=== PATIENT | male | born 1955 | race Caucasian/White ===

== ENCOUNTER 2017-07-30 12:44 | Emergency (ER) | payer MEDICARE ==
[~2017-07-30] VITALS: Ht 172.7 cm; Wt 100.0 kg
[~2017-07-30 12:44] MED LIST: ASPI-1265 PO; HYDR1TAB PO; MYL80T PO; NOR5T PO; OMEP-84 PO; PAM25C PO; PROM25TA14 PO; ZOLP5TAB8 PO
[2017-07-30] MEDS ORDERED: ondansetron/PF 4mg/2ml inj IV ONE (13:20)
[2017-07-30] MEDS ORDERED: morphine 4 MG/ML inj SYRINge IV ONE ×2 (13:20→14:50)
[2017-07-30] MEDS ORDERED: normal saline 1000ML IV soln IVB ONE (13:20)
[2017-07-30] MEDS ORDERED: iohexol 300mg/ml 100ml inj. ONE (13:46)
[2017-07-30 14:13] LABS: BASOPHILS % (AUTO) 0.1 % (0-1); EOSINOPHILS # (AUTO) 0.2 X10'3 (0-0.9); EOSINOPHILS % (AUTO) 1.4 % (0-6); HEMATOCRIT 40.8 % (42.0-52.0); HEMOGLOBIN 14.3 g/dl (14.0-17.9); LYMPHOCYTES # (AUTO) 1.1 X10'3 (1.1-4.8); LYMPHOCYTES % (AUTO) 10.4 % (21-51); MEAN CORPUSCULAR HEMOGLOBIN 33.1 PG (27.0-31.0); MEAN CORPUSCULAR VOLUME 94.6 FL (78-98); MEAN PLATELET VOLUME 8.2 FL (7.4-10.4); MONOCYTES # (AUTO) 0.6 X10'3 (0-0.9); MONOCYTES % (AUTO) 5.4 % (2-12); NEUTROPHILS % (AUTO) 82.7 % (42-75); PLATELET COUNT 183 X10'3 (140-440); RED BLOOD COUNT 4.31 X10'6 (4.70-6.10); RED CELL DISTRIBUTION WIDTH 13.7 % (11.5-14.5); WHITE BLOOD COUNT 10.8 X10'3 (4.5-11.0)
[2017-07-30 14:30] LABS: ALANINE AMINOTRANSFERASE 48 U/L (12-78); ALBUMIN 4.2 G/DL (3.4-5.0); ALBUMIN/GLOBULIN RATIO 1.2 (1.1-1.5); ALKALINE PHOSPHATASE 101 IU/L (46-116); ANION GAP 12 (8-16); ASPARTATE AMINO TRANSFERASE 35 U/L (10-37); BILIRUBIN,TOTAL 0.4 MG/DL (0.1-1.0); BLOOD UREA NITROGEN 12 MG/DL (7-18); BUN/CREATININE RATIO 11.8 (5.4-32.0); CHLORIDE 102 MMOL/L (99-107); CREATININE 1.02 MG/DL (0.60-1.10); GLUCOSE 113 MG/DL (70-104); LIPASE 104 U/L (73-393); SODIUM 138 MMOL/L (135-145); TOTAL PROTEIN 7.7 G/DL (6.4-8.2); eGFR 74 ML/MIN
[2017-07-30 14:49] LABS: TOTAL CELLS COUNTED 100
[2017-07-30 14:50] LABS: PLATELET ESTIMATE NORMAL
[2017-07-30 16:01] LABS: CLARITY,URINE CLEAR (Clear); COLOR,URINE YELLOW (Yellow); GLUCOSE, URINE NEGATIVE (Neg); KETONES,URINE NEGATIVE (Neg); LEUKOCYTE ESTERASE ,URINE NEGATIVE (Neg); NITRITES, URINE NEGATIVE (Neg); OCCULT BLOOD,URINE LARGE (Neg); PH,URINE 5.5 (4.8-8.0); PROTEIN,URINE NEGATIVE (Neg); UA COLLECTION TYPE CLN CATCH MIDSTREAM; UROBILINOGEN,URINE 0.2 E.U/dL (0.2-1.0)
[2017-07-30 16:07] LABS: BACTERIA,URINE NONE SEEN /HPF (Neg); RBC,URINE TNTC /HPF (0-2); WBC,URINE 0-4 /HPF (0-4)
[2017-07-30 16:08] LABS: COARSE GRANULAR CAST 0-3 /LPF (NEGATIVE); HYALINE CASTS 0-3 /LPF (NEGATIVE); MUCUS STRANDS FEW /LPF (Neg); SQUAMOUS EPITHELIAL CELL,UR NONE SEEN /LPF (FEW)
[2017-07-30] MEDS ORDERED: OXYC-145 PO (16:44)
[2017-07-30] MEDS ORDERED: PER10325T PO (16:47)
[2017-07-30 17:17] VITALS: BP 126/105
== END 2017-07-30 17:20 | disposition home or self-care (01) ==
LOC: ER 12:45
DX: S32.048A Other fracture of fourth lumbar vertebra, initial encounter for closed fracture (principal); S52.502A Unspecified fracture of the lower end of left radius, initial encounter for closed fracture; I10 Essential (primary) hypertension; G89.29 Other chronic pain; Z98.890 Other specified postprocedural states; Z79.82 Long term (current) use of aspirin; Z79.899 Other long term (current) drug therapy; W01.0XXA Fall on same level from slipping, tripping and stumbling without subsequent striking against object, initial encounter; Y93.89 Activity, other specified; Y92.89 Other specified places as the place of occurrence of the external cause; Y99.8 Other external cause status
CPT/HCPCS: 36415; 71260; 72148; 73090; 74177; 80053; 81001; 83605; 83690; 85025; 86885; 86900; 86901; 93005; 96361; 96374; 96375; 96376; 99285; J2270; J2405; J7030; Q9967

== ENCOUNTER 2017-08-05 10:20 | Outpatient (CLI) | payer MEDICARE ==
[2017-08-05 10:19] VITALS: BP 134/94
[~2017-08-05 10:20] MED LIST changes: +PER10325T PO
== END 2017-08-05 11:45 | disposition home or self-care (01) ==
LOC: ORTHO 10:20
PROVIDERS: ATTEND Nurse Practitioner Family
DX: S52.502A Unspecified fracture of the lower end of left radius, initial encounter for closed fracture (principal); S52.612A Displaced fracture of left ulna styloid process, initial encounter for closed fracture; Z79.899 Other long term (current) drug therapy; W11.XXXA Fall on and from ladder, initial encounter; Y93.89 Activity, other specified; Y92.89 Other specified places as the place of occurrence of the external cause; Y99.8 Other external cause status
CPT/HCPCS: 29075; 73110; 99213; A4590

== ENCOUNTER 2017-08-24 08:30 | Day surgery (SDC) | payer MEDICARE ==
[2017-08-22 12:14] LABS: BASOPHILS % (AUTO) 0.2 % (0-1); EOSINOPHILS # (AUTO) 0.1 X10'3 (0-0.9); EOSINOPHILS % (AUTO) 1.2 % (0-6); LYMPHOCYTES # (AUTO) 2.1 X10'3 (1.1-4.8); LYMPHOCYTES % (AUTO) 42.7 % (21-51); MEAN CORPUSCULAR HEMOGLOBIN 32.7 PG (27.0-31.0); MEAN CORPUSCULAR VOLUME 93.6 FL (78-98); MEAN PLATELET VOLUME 8.4 FL (7.4-10.4); MONOCYTES # (AUTO) 0.4 X10'3 (0-0.9); MONOCYTES % (AUTO) 8.2 % (2-12); NEUTROPHILS # (AUTO) 2.3 X10'3 (1.8-7.7); NEUTROPHILS % (AUTO) 47.7 % (42-75); PRE OP HEMATOCRIT 39.9 % (42.0-52.0); PRE OP HEMOGLOBIN 13.9 g/dL (14.0-17.9); PRE OP PLATELET COUNT 202 X10'3 (140-440); RED BLOOD COUNT 4.26 X10'6 (4.70-6.10); RED CELL DISTRIBUTION WIDTH 13.8 % (11.5-14.5)
[2017-08-22 12:35] LABS: ALBUMIN/GLOBULIN RATIO 1.1 (1.1-1.5); ALKALINE PHOSPHATASE 183 IU/L (46-116); BLOOD UREA NITROGEN 14 MG/DL (7-18); BUN/CREATININE RATIO 15.6 (5.4-32.0); CHLORIDE 104 MMOL/L (99-107); PRE OP ALT 31 U/L (30-65); PRE OP ANION GAP 10 (8-16); PRE OP AST 19 U/L (10-37); PRE OP BILIRUB, TOTAL 0.3 MG/DL (0.0-1.0); PRE OP GLUCOSE 102 MG/DL (70-104); PRE OP POTASSIUM 4.3 MMOL/L (3.4-5.1); PRE OP SODIUM 142 MMOL/L (135-145); TOTAL PROTEIN 7.5 G/DL (6.4-8.2); eGFR 85 ML/MIN
[~2017-08-24] VITALS: Ht 175.3 cm; Wt 102.1 kg
[2017-08-24] VITALS (8 sets, daily range): BP systolic 133–143; BP diastolic 77–92
[~2017-08-24 08:30] MED LIST changes: -PAM25C PO; -PER10325T PO; +ceFAZolin 2gm in dextrose, iso 100 ML IV ONE; +famotidine 20mg tablet PO ONE; +ringers solution, lacted 1,000 ML IV SCH; +vancomycin inj 1,500 MG in normal saline 300ml IV soln IV ONE
[2017-08-24] MEDS ORDERED: ceFAZolin 1000mg inj ONE (09:49)
[2017-08-24] MEDS ORDERED: BUPIVAcaine/PF 2.5 mg/ml (0.25%) 30ml vial ONE ×2 (09:49→10:50)
[2017-08-24] MEDS ORDERED: desflurane 240ml liquid inh. IH ONE (10:16)
[2017-08-24] MEDS ORDERED: fentaNYL/PF 50MCG/1 ML 2ML syringe ONE (10:20)
[2017-08-24] MEDS ORDERED: midazolam 2 mg/2 ml injection ONE (10:21)
[2017-08-24] MEDS ORDERED: dexamethasone sod phosphate 4mg/ml inj. ONE (10:50)
[2017-08-24] MEDS ORDERED: ePHEDrine 50MG/ML INJ. ONE (10:51)
[2017-08-24] MEDS ORDERED: LIDOcaine 2% (20mg/ml) 5ml vial ONE (10:51)
[2017-08-24] MEDS ORDERED: ondansetron/PF 4mg/2ml inj ONE (11:39)
[2017-08-24] MEDS ORDERED: ketorolac trometh. 30mg/ml inj. ONE (11:39)
[2017-08-24] MEDS ORDERED: morphine 10mg/ml inj. ONE (11:40)
[2017-08-24] MEDS ORDERED: ringers solution, lacted 1,000 ML IV SCH (12:46)
[2017-08-24] MEDS ORDERED: acetaminophen 1,000mg/100ml IV 100 ML IV PRN (12:50)
[2017-08-24] MEDS ORDERED: ondansetron/PF 4mg/2ml inj IV PRN (12:50)
[2017-08-24] MEDS ORDERED: proCHLORperazine 10 MG/2 ml inj IV PRN (12:50)
[2017-08-24] MEDS ORDERED: morphine 4 MG/ML inj SYRINge IV PRN ×2 (12:50)
[2017-08-24] MEDS ORDERED: meperidine/PF 50mg/ml syringe IV PRN ×3 (12:50)
== END 2017-08-24 13:45 | disposition home or self-care (01) ==
LOC: PAS 08:30
PROVIDERS: ATTEND Orthopaedic Surgery
DX: S52.572A Other intraarticular fracture of lower end of left radius, initial encounter for closed fracture (principal); I10 Essential (primary) hypertension; F32.9 Major depressive disorder, single episode, unspecified; Z79.82 Long term (current) use of aspirin; Z98.890 Other specified postprocedural states; Z87.891 Personal history of nicotine dependence; Z98.52 Vasectomy status; Z79.899 Other long term (current) drug therapy; W11.XXXA Fall on and from ladder, initial encounter; Y93.E9 Activity, other interior property and clothing maintenance; Y92.89 Other specified places as the place of occurrence of the external cause; Y99.8 Other external cause status
CPT/HCPCS: 25608; 36415; 80053; 85025; A4565; A6449; C1713; J0690; J1100; J1885; J2001; J2250; J2270; J2405; J3010; J3370; J3490; J7120; A7000

== ENCOUNTER 2017-09-02 09:16 | Outpatient (CLI) | payer MEDICARE ==
[2017-09-02 09:14] VITALS: BP 141/86
[~2017-09-02 09:16] MED LIST changes: -ceFAZolin 2gm in dextrose, iso 100 ML IV ONE; -famotidine 20mg tablet PO ONE; -ringers solution, lacted 1,000 ML IV SCH; -vancomycin inj 1,500 MG in normal saline 300ml IV soln IV ONE
== END 2017-09-02 10:06 | disposition home or self-care (01) ==
LOC: ORTHO 09:16
PROVIDERS: ATTEND Nurse Practitioner Family
DX: S52.502D Unspecified fracture of the lower end of left radius, subsequent encounter for closed fracture with routine healing (principal); S52.615D Nondisplaced fracture of left ulna styloid process, subsequent encounter for closed fracture with routine healing; W11.XXXD Fall on and from ladder, subsequent encounter
CPT/HCPCS: 29125; 73100; 99213; A6449

== ENCOUNTER 2017-09-09 08:05 | Outpatient (CLI) | payer MEDICARE ==
[2017-09-09 08:33] VITALS: BP 154/95
== END 2017-09-09 09:22 | disposition home or self-care (01) ==
LOC: ORTHO 08:05
PROVIDERS: ATTEND Nurse Practitioner Family
DX: S52.502D Unspecified fracture of the lower end of left radius, subsequent encounter for closed fracture with routine healing (principal); S52.612D Displaced fracture of left ulna styloid process, subsequent encounter for closed fracture with routine healing; I10 Essential (primary) hypertension; F41.9 Anxiety disorder, unspecified; D64.9 Anemia, unspecified; G89.29 Other chronic pain; Z87.891 Personal history of nicotine dependence; Z87.11 Personal history of peptic ulcer disease; W11.XXXD Fall on and from ladder, subsequent encounter
CPT/HCPCS: 99214; A6449

== ENCOUNTER 2017-09-16 10:08 | Outpatient (CLI) | payer MEDICARE ==
[2017-09-16 10:31] VITALS: BP 147/98
== END 2017-09-16 11:39 | disposition home or self-care (01) ==
LOC: ORTHO 10:08
PROVIDERS: ATTEND Nurse Practitioner Family
DX: S52.502D Unspecified fracture of the lower end of left radius, subsequent encounter for closed fracture with routine healing (principal); S52.615D Nondisplaced fracture of left ulna styloid process, subsequent encounter for closed fracture with routine healing; I10 Essential (primary) hypertension; G89.29 Other chronic pain; F41.9 Anxiety disorder, unspecified; Z87.11 Personal history of peptic ulcer disease; W11.XXXD Fall on and from ladder, subsequent encounter
CPT/HCPCS: 73100; 87070; 87077; 87186; 99214; A6446; A6449

== ENCOUNTER 2017-09-23 09:36 | Outpatient (CLI) | payer MEDICARE ==
[2017-09-23 09:45] VITALS: BP 159/103
[2017-09-23 09:55] VITALS: BP 144/87
== END 2017-09-23 10:21 | disposition home or self-care (01) ==
LOC: ORTHO 09:36
PROVIDERS: ATTEND Nurse Practitioner Family
DX: S52.502D Unspecified fracture of the lower end of left radius, subsequent encounter for closed fracture with routine healing (principal); S52.612D Displaced fracture of left ulna styloid process, subsequent encounter for closed fracture with routine healing; F41.9 Anxiety disorder, unspecified; G89.29 Other chronic pain; I10 Essential (primary) hypertension; Z87.11 Personal history of peptic ulcer disease; W11.XXXD Fall on and from ladder, subsequent encounter
CPT/HCPCS: 99213

== ENCOUNTER 2017-09-30 13:15 | Outpatient (CLI) | payer MEDICARE | END 2017-09-30 14:18 | disposition home or self-care (01) | LOC: ORTHO 13:15 | PROVIDERS: ATTEND Nurse Practitioner Family | DX: S52.502D Unspecified fracture of the lower end of left radius, subsequent encounter for closed fracture with routine healing (principal); S52.612D Displaced fracture of left ulna styloid process, subsequent encounter for closed fracture with routine healing; M54.9 Dorsalgia, unspecified; G89.29 Other chronic pain; I10 Essential (primary) hypertension; F41.9 Anxiety disorder, unspecified; D64.9 Anemia, unspecified; Z87.11 Personal history of peptic ulcer disease; Z87.891 Personal history of nicotine dependence; W11.XXXD Fall on and from ladder, subsequent encounter | CPT/HCPCS: 73110; 99213 ==

== ENCOUNTER 2017-10-18 13:09 | Outpatient (CLI) | payer MEDICARE ==
[2017-10-18 13:23] VITALS: BP 153/110
== END 2017-10-18 15:20 | disposition home or self-care (01) ==
LOC: ORTHO 13:09
PROVIDERS: ATTEND Nurse Practitioner Family
DX: S52.502D Unspecified fracture of the lower end of left radius, subsequent encounter for closed fracture with routine healing (principal); S52.612G Displaced fracture of left ulna styloid process, subsequent encounter for closed fracture with delayed healing; I10 Essential (primary) hypertension; D64.9 Anemia, unspecified; F31.9 Bipolar disorder, unspecified; Z87.891 Personal history of nicotine dependence; X58.XXXD Exposure to other specified factors, subsequent encounter
CPT/HCPCS: 73100; 99213

== ENCOUNTER 2017-11-11 13:45 | Outpatient (CLI) | payer MEDICARE ==
[2017-11-11 14:18] VITALS: BP 154/96
== END 2017-11-11 15:11 | disposition home or self-care (01) ==
LOC: ORTHO 13:45
PROVIDERS: ATTEND Nurse Practitioner Family
DX: S52.502K Unspecified fracture of the lower end of left radius, subsequent encounter for closed fracture with nonunion (principal); S52.612K Displaced fracture of left ulna styloid process, subsequent encounter for closed fracture with nonunion; I10 Essential (primary) hypertension; D64.9 Anemia, unspecified; F41.9 Anxiety disorder, unspecified; Z87.891 Personal history of nicotine dependence; X58.XXXD Exposure to other specified factors, subsequent encounter
CPT/HCPCS: 73110; 99213

== ENCOUNTER 2020-01-21 11:17 | Emergency (ER) | payer MEDICARE ==
[~2020-01-21] VITALS: Ht 172.7 cm; Wt 120.0 kg
[2020-01-21 11:27] VITALS: BP 178/98
[2020-01-21] MEDS ORDERED: PENI500T2 PO (12:32)
[2020-01-21] MEDS ORDERED: HYDR-4383 PO (12:32)
[2020-01-21] MEDS ORDERED: ONDA4TAB6 PO (12:32)
--- NOTE | 2020-01-21 12:50 | NUR ---
pt dc'd seen and dc'd by provider
== END 2020-01-21 12:52 | disposition home or self-care (01) ==
LOC: ER 11:17
DX: K05.219 Aggressive periodontitis, localized, unspecified severity (principal); I10 Essential (primary) hypertension; F41.9 Anxiety disorder, unspecified; Z86.2 Personal history of diseases of the blood and blood-forming organs and certain disorders involving the immune mechanism; Z98.890 Other specified postprocedural states; Z79.82 Long term (current) use of aspirin; Z79.899 Other long term (current) drug therapy
CPT/HCPCS: 99283

== ENCOUNTER 2021-07-18 05:23 | Emergency (ER) | payer MEDICARE ==
[~2021-07-18] VITALS: Ht 175.3 cm; Wt 122.7 kg
[~2021-07-18 05:23] MED LIST changes: +HYDR-4383 PO; +ONDA4TAB6 PO
[2021-07-18 07:06] LABS: CLARITY,URINE CLEAR (Clear); COLOR,URINE YELLOW (Yellow); GLUCOSE, URINE NEGATIVE (Neg); KETONES,URINE NEGATIVE (Neg); LEUKOCYTE ESTERASE ,URINE NEGATIVE (Neg); NITRITES, URINE NEGATIVE (Neg); OCCULT BLOOD,URINE NEGATIVE (Neg); PH,URINE 6.5 (4.8-8.0); PROTEIN,URINE NEGATIVE (Neg); UROBILINOGEN,URINE 0.2 E.U/dL (0.2-1.0)
[2021-07-18 07:07] LABS: EOSINOPHILS % (AUTO) 0 % (0-6); HEMATOCRIT 40.2 % (42.0-52.0); LYMPHOCYTES # (AUTO) 0.5 X10'3 (1.1-4.8); MEAN PLATELET VOLUME 8.4 FL (7.4-10.4)
[2021-07-18 07:11] LABS: UA COLLECTION TYPE VOIDED
[2021-07-18 07:11] LABS: BASOPHILS % (AUTO) 0 % (0-1); HEMOGLOBIN 13.6 g/dl (14.0-17.9); LYMPHOCYTES % (AUTO) 3.1 % (21-51); MEAN CORPUSCULAR HEMOGLOBIN 32.1 PG (27.0-31.0); MEAN CORPUSCULAR HGB CONC 33.9 g/dL (33.0-36.5); MEAN CORPUSCULAR VOLUME 94.7 FL (78-98); MONOCYTES # (AUTO) 0.7 X10'3 (0-0.9); MONOCYTES % (AUTO) 4.7 % (2-12); NEUTROPHILS # (AUTO) 14.5 X10'3 (1.8-7.7); NEUTROPHILS % (AUTO) 92.2 % (42-75); PLATELET COUNT 186 X10'3 (140-440); RED BLOOD COUNT 4.25 X10'6 (4.70-6.10); RED CELL DISTRIBUTION WIDTH 14.2 % (11.5-14.5); WHITE BLOOD COUNT 15.7 X10'3 (4.5-11.0)
[2021-07-18 07:18] LABS: ALANINE AMINOTRANSFERASE 100 U/L (12-78); ALBUMIN 3.8 G/DL (3.4-5.0); ALKALINE PHOSPHATASE 105 IU/L (46-116); ANION GAP 12 (8-16); ASPARTATE AMINO TRANSFERASE 71 U/L (10-37); BILIRUBIN,TOTAL 0.6 MG/DL (0.1-1.0); BLOOD UREA NITROGEN 13 MG/DL (7-18); BUN/CREATININE RATIO 11.8 (5.4-32.0); CALCIUM 8.7 MG/DL (8.5-10.1); CHLORIDE 100 MMOL/L (99-107); GLUCOSE 120 MG/DL (70-104); LIPASE 56 U/L (73-393); POTASSIUM 3.9 MMOL/L (3.5-5.1); SODIUM 136 MMOL/L (135-145); TOTAL CARBON DIOXIDE 24.4 MMOL/L (24-32); TOTAL PROTEIN 7.5 G/DL (6.4-8.2); eGFR 67 ML/MIN
[2021-07-18] MEDS ORDERED: pantoprazole 40MG/NS 100ML BAG 100 ML IV ONE ×2 (07:40)
[2021-07-18] MEDS ORDERED: iohexol 300mg/ml 100ml inj. ONE (07:53)
--- NOTE | 2021-07-18 08:05 | NUR ---
Pt to CT.
--- NOTE | 2021-07-18 08:24 | NUR ---
Pt back to room from CT.
[2021-07-18] MEDS ORDERED: azithromycin/NS 500mg/250ml 250 ML IV ONE (10:05)
[2021-07-18] MEDS ORDERED: CefTRIAXone/D5W-Rocephin 1gm 50 ML IV ONE (10:05)
--- NOTE | 2021-07-18 10:41 | NUR ---
Discussed pt's HR with FELTON Perkins, received orders for 500 mL NS bolus.
[2021-07-18] MEDS ORDERED: AZIT-83 PO (10:45)
[2021-07-18] MEDS ORDERED: normal saline 500ml IV soln 500 ML IV ONE (10:45)
[2021-07-18] MEDS ORDERED: ondansetron 4mg rapidly disintigrating tab PO ONE (11:50)
--- NOTE | 2021-07-18 12:00 | NUR ---
Pt complaining of nausea, EDMD notified. PO Zofran ordered. Notified EDMD of pt's HR prior to discharge, per EDMD still ok to DC.
[2021-07-18 12:25] VITALS: BP 144/90
== END 2021-07-18 12:26 | disposition home or self-care (01) ==
LOC: ER 05:25
DX: J18.9 Pneumonia, unspecified organism (principal); Z20.822 Contact with and (suspected) exposure to COVID-19; I10 Essential (primary) hypertension; Z87.19 Personal history of other diseases of the digestive system; Z87.11 Personal history of peptic ulcer disease; Z86.2 Personal history of diseases of the blood and blood-forming organs and certain disorders involving the immune mechanism; Z79.82 Long term (current) use of aspirin; Z79.2 Long term (current) use of antibiotics; Z79.899 Other long term (current) drug therapy
CPT/HCPCS: 36415; 71045; 74177; 80053; 81003; 83690; 84484; 85025; 87635; 93005; 96365; 96368; 96375; 99285; C9113; C9803; J0456; J0696; J7040; Q9967; 96367

== ENCOUNTER 2023-01-09 08:15 | Emergency (ER) | payer MEDICARE ==
[~2023-01-09] VITALS: Ht 175.3 cm; Wt 115.5 kg
[2023-01-09 08:23] VITALS: BP 164/103; PULSE 84; TEMP 98.4; O2SAT 96
[2023-01-09] MEDS ORDERED: ORPH100T4 PO (08:50)
[2023-01-09] MEDS ORDERED: ketorolac trometh. 30mg/ml inj. IV ONE (08:50)
[2023-01-09 08:54] VITALS: RESP 14
== END 2023-01-09 08:59 | disposition home or self-care (01) ==
LOC: ER 08:15
DX: M54.12 Radiculopathy, cervical region (principal); I10 Essential (primary) hypertension; Z79.82 Long term (current) use of aspirin; Z79.899 Other long term (current) drug therapy
CPT/HCPCS: 96374; 99283; J1885

== ENCOUNTER 2024-03-11 07:49 | Emergency (ER) | payer MEDICARE ==
[~2024-03-11] VITALS: Ht 172.7 cm; Wt 100.8 kg
[~2024-03-11 07:49] MED LIST changes: +ORPH100T4 PO
[2024-03-11 07:53] VITALS: BP 158/91; PULSE 88; TEMP 98; O2SAT 97
[2024-03-11 10:13] VITALS: RESP 16
== END 2024-03-11 10:17 | disposition home or self-care (01) ==
LOC: ER 07:49
DX: S93.492A Sprain of other ligament of left ankle, initial encounter (principal); M25.562 Pain in left knee; I10 Essential (primary) hypertension; D64.9 Anemia, unspecified; Z98.890 Other specified postprocedural states; F41.9 Anxiety disorder, unspecified; Z79.82 Long term (current) use of aspirin; Z79.899 Other long term (current) drug therapy; X58.XXXA Exposure to other specified factors, initial encounter; Y93.89 Activity, other specified; Y92.89 Other specified places as the place of occurrence of the external cause; Y99.8 Other external cause status
CPT/HCPCS: 73564; 73610; 99284

== ENCOUNTER 2025-02-09 06:23 | Emergency (ER) | payer MEDICARE ==
[~2025-02-09] VITALS: Ht 172.7 cm; Wt 122.7 kg
[~2025-02-09 06:23] MED LIST changes: +ZOLP5TAB19 PO; -ZOLP5TAB8 PO
[2025-02-09 06:32] VITALS: BP 165/84; PULSE 81; RESP 16; TEMP 98.3; O2SAT 97
--- NOTE | 2025-02-09 09:29 | Physician Documentation ---
History of Present Illness ~ Chief Complaint: Eye Pain Stated Complaint: EYE PAIN/SWELLING Time Seen by MD: 09:06 OK to notify your PCP?: Yes Primary Medical Doctor: [facility] Source: patient Mode of Arrival: POV Exam Limitations: no limitations HPI 69-year-old male who due to right lower eyelid pain and swelling x 3days. He decided to come to the ER today because he states every day it has gotten a little bit more painful and more red and swollen. He has never had anything like this before. He denies any vision changes or pain with moving his eyeball. He denies photophobia. He states his eye feels really dry. Initially he thought maybe that he had gotten something in his eye as it occurred after he had been working outside all day. He does not wear contact lenses. Medication Reconciliation Allergies: Coded Allergies: No Known Allergies (Unverified , 02/09/25) Scheduled Amlodipine* (Norvasc*), 5 MG PO DAILY, (Reported) Aspirin (Aspirin), 81 MG PO DAILY, (Reported) Hydrocodone/Acetaminophen ([place] 5-325 Tablet), 1 TAB PO TID PRN Omeprazole* (Prilosec*), 20 MG PO BID, (Reported) Ondansetron Hcl (Zofran), 1 TAB PO Q6H Orphenadrine Citrate (Norflex), 1 TAB PO Q12H PRN Zolpidem Tartrate* (Ambien*), 10 MG PO HS, (Reported) Scheduled PRN Hydrocodone/Acetaminophen (Vicodin 5-500 Tablet), 2 TAB PO Q6H PRN, (Reported) Promethazine HCl (Promethazine HCl), 50 MG PO TID PRN for nausea/vomiting, (Reported) Simethicone Chewable* (Mylicon Chewable*), 80 MG PO Q4H PRN, (Reported) Past Medical History Past Medical History: Hypertension, Diverticulitis, Diverticulosis, GI Bleed, Inflammatory Bowel Dz, Peptic Ulcer Disease, Anemia, Spine Compression, Anxiety Past Surgical History: orthopedic surgeries Alcohol Use: None Drug Use: none Lives with: Spouse Lives In: Home Occupation: retired Review of Systems All Other Systems at this time: Reviewed and Negative Physical Exam Vital Signs: Temperature: 98.3, Source: Oral, Heart Rate: 81, Respiratory Rate: 16, BP: 165/84, Pulse Oximetry: 97, Weight: 122.700 Oxygen Flow Rate: 0 Physical Exam General Appearance: Alert, WD/WN. NAD. HEENT: NCAT, PERRL, EOMI WITHOUT PAIN. RIGHT LOWER EYEBALL EDEMATOUS ERYTHEMATOUS INDURATED TENDER AREA AT LOWER INNER EYELID, AREA MEASURES ABOUT 1CM. BULBAR CONJUNCTIVA IS CLEAR, LEFT EYE NORMAL EXAM. Neck: Supple, trachea midline. NO CERVICAL LAD. Cardiovascular: RRR. No m/r/g. Lungs: CTAB. Breathing unlabored Extremities: Normal inspection. No edema. Skin: Warm/dry, normal color Neurological: Alert and oriented x4, normal gait. Psychiatric: Affect congruent with mood. Progress Results/Orders Results/Orders Vital Signs 02/09/25 06:32 Temp 98.3 Pulse 81 Resp 16 B/P (MAP) 165/84 Pulse Ox 97 O2 Flow Rate 0 Medical Decision Making Eye Diff. Dx: Considerations: Include: [place], Conjuctivits-allergic, Conjuctivitis-bacterial, Conjuctivits-chlamydial, Conjuctivitis-viral, Corneal abrasion, Corneal laceration, Corneal ulceration, Foreign body-conjuctiva, Forei gn body-corneal, Foreign body-intraocular, Foreign body-lid, Glaucoma, Globe rupture, Hordeolum, Iritis, Orbital cellulitis, Periobital cellulitis, Retinal artery occulsion, Retinal vein occlusion, Rust ring, Subconjunctival hem, Ultraviolet keratitis, Uveitis, Vitreous hemorrhage Departure Time of Disposition: 09:29 Disposition: 01 HOME / SELF CARE / HOMELESS Impression: Primary Impression: Dacrocystitis Qualified Codes: H04.301 - Unspecified dacryocystitis of right lacrimal passage Condition: Stable Discharge Instructions: Dacryocystitis Additional Instructions: IF INCREASING SWELLING, PAIN, FEVER, RETURN TO ER THIS WILL LIKELY MEAN YOU NEED ADMISSION FOR IV ANTIBIOTICS WARM COMPRESSES Referrals: NO PRIMARY CARE PROVIDER (PCP) Prescriptions Erythromycin Base Opth. Ointment* (Erythromycin Opth. Ointment*) 1 Gm Tube 1 APPLIC RIGHTEYE Q6HWA for 7 Days, #1 EACH Prov: KAYCEE SPARROW 02/09/25 Clindamycin (Cleocin ) 150 Mg Capsule 2 CAP PO Q6H, #56 CAP Prov: KAYCEE SPARROW 02/09/25 Education Educated: Patient Educated regarding: diagnosis, treatment, need for follow up Signature Scribe Signature: X Attestation: KAYCEE PATRICIO Feb 09, 2025 09:29
[2025-02-09] MEDS ORDERED: CLIN150C2 PO (09:32)
[2025-02-09] MEDS ORDERED: ERYT1OIN6 RIGHTEYE (09:32)
== END 2025-02-09 09:50 | disposition home or self-care (01) ==
LOC: ER 06:23
DX: H04.301 Unspecified dacryocystitis of right lacrimal passage (principal); I10 Essential (primary) hypertension; D64.9 Anemia, unspecified; F41.9 Anxiety disorder, unspecified; Z79.82 Long term (current) use of aspirin; Z79.899 Other long term (current) drug therapy; Z98.890 Other specified postprocedural states
CPT/HCPCS: 99283